=== PATIENT | male | born 1960 | race Caucasian/White ===

== ENCOUNTER → 2017-09-12 | Outpatient (CLI) | payer OTHER ==
[~2017-09-12] MED LIST: IOPAMIDOL (ISOVUE-300) 100 ML BTL ONE
== END ==
LOC: CIMAGING 08:13
PROVIDERS: ATTEND Family Medicine
DX: N28.89 Other specified disorders of kidney and ureter (principal); N28.1 Cyst of kidney, acquired
CPT/HCPCS: 74178-PO; Q9967

== ENCOUNTER → 2017-09-12 | Outpatient (CLI) | payer OTHER | LOC: FIMAGING 14:32 | PROVIDERS: ATTEND Physician Assistant Medical | DX: C64.9 Malignant neoplasm of unspecified kidney, except renal pelvis (principal); N28.1 Cyst of kidney, acquired; R31.0 Gross hematuria ==

== ENCOUNTER 2017-10-02 08:55 | Inpatient (IN) | payer OTHER ==
--- NOTE | 2017-10-01 14:38 | GHP ---
[f rep st] PREOP HISTORY AND PHYSICAL ADMISSION DIAGNOSIS: Left renal mass. HISTORY OF PRESENT ILLNESS: This is a 57-year-old gentleman who was referred for evaluation of left renal mass. He had gross hematuria with coke colored urine and clots noted. He had an evaluation with a CAT scan which showed simple cysts bilaterally with a left renal mass that was 6.8 cm long by 5.5 cm transverse, 4.88 cm AP and question of renal vein invasion. PAST HISTORY: He has had hematuria, diabetes, hypertension, and reflux. PAST SURGICAL HISTORY: A tonsillectomy. MEDICATIONS: Atenolol, Aleve, and Lialda. ALLERGIES: None. FAMILY HISTORY: Positive for heart disease and lymphoma. SOCIAL HISTORY: Moderate alcohol consumption. Nonsmoker. He is with children. REVIEW OF SYSTEMS: Negative cardiac, respiratory, GI and endocrine as noted above. PHYSICAL EXAMINATION: VITAL SIGNS: Stable. CHEST: Clear. HEART: Regular rate and rhythm. ABDOMEN: Normal. No organomegaly, rebound or guarding. Lower extremities are normal. LABORATORY DATA: He has had a creatinine on 09/05/2017 that was 1.1, hemoglobin A1c that was 7.8, and a serum glucose was 203. ASSESSMENT AND PLAN: At the present time, he is admitted for left robotic assisted radical nephrectomy and possible ureterectomy if it turns out that this is a transitional cell carcinoma of the kidney. It appears to be most likely renal cell carcinoma. /[id number]/MODL MTDD
--- NOTE | 2017-10-02 07:01 | PDHPUP ---
History & Physical Update H&P update statement: This history and physical update is based on an assessment of the patient which was completed after admission or registration (within 24 hours), but prior to the surgery/procedure. H&P update: H&P reviewed & patient examined, no change in patient's condition since H&P completed
[~2017-10-02 08:55] MED LIST changes: -IOPAMIDOL (ISOVUE-300) 100 ML BTL ONE; +ceFAZolin 2 GM/SWFI 2 GM/20 ML SYR IVP ONE
[2017-10-02] MEDS ORDERED: LR 1,000 ML IV ONE (11:14)
[2017-10-02] MEDS ORDERED: fentaNYL 100 MCG/2 ML INJ ONE ×3 (11:33→15:42)
[2017-10-02] MEDS ORDERED: PROPOFOL 200 MG/20 ML VIAL ONE ×2 (11:33→12:48)
[2017-10-02] MEDS ORDERED: LIDOCAINE 2% 100 MG/5 ML SYR ONE (11:34)
[2017-10-02] MEDS ORDERED: BUPIVACAINE 0.5% 30 ML SDV ONE (11:37)
[2017-10-02] MEDS ORDERED: ceFAZolin 2 GM/SWFI 20 ML SYR IVP ONE (11:38)
[2017-10-02] MEDS ORDERED: MIDAZOLAM 2 MG/2 ML VIAL IVP ONE (11:48)
--- NOTE | 2017-10-02 11:48 | PDANEPAE ---
ANE History of Present Illness here for nephrectomy ANE Past Medical History - Cardiovascular History Hx Hypertension: Yes Hx Arrhythmias: No Hx Chest Pain: No Hx Coronary Artery / Peripheral Vascular Disease: No Hx CHF / Valvular Disease: No Hx Palpitations: No Cardiovascular History Comment: benign PVC's - Pulmonary History Hx COPD: No Hx Asthma/Reactive Airway Disease: No Hx Recent Upper Respiratory Infection: No Hx Oxygen in Use at Home: No Hx Sleep Apnea: No Sleep Apnea Screening Result - Last Documented: Positive Pulmonary History Comment: sinus infections from allergies - Neurologic History Hx Cerebrovascular Accident: No Hx Seizures: No Hx Dementia: No - Endocrine History Hx Diabetes: Yes Endocrine History Comment: type 11. not taking any meds - Renal History Hx Renal Disorders: Yes Renal History Comment: Renal mass - Liver History Hx Hepatic Disorders: No - Neurological & Psychiatric Hx Hx Neurological and Psychiatric Disorders: No - Cancer History Hx Cancer: No - Congenital Disorder History Hx Congenital Disorders: No - GI History Hx Gastrointestinal Disorders: Yes Gastrointestinal History Comment: cholitis - Other Health History Other Health History: none - Chronic Pain History Chronic Pain: Yes (sinus pain) - Surgical History Prior Surgeries: none ANE Review of Systems Review of Systems: - Exercise capacity METS (RN): 5 METS ANE Patient History - Allergies Allergies/Adverse Reactions: omeprazole [From Prilosec] Allergy (Verified 09/18/17 13:38) Vomiting - Home Medications Home Medications: Acetaminophen [Tylenol 325mg (*)] 325 - 650 mg PO Q6HRS PRN 09/18/17 [Last Taken Unknown] Atenolol [Tenormin 25 mg (*)] 25 mg PO HS 09/18/17 [Last Taken Unknown] Herbals/Supplements -Info Only 1 ea PO DAILY 09/18/17 [Last Taken Unknown] Lisinopril [Zestril 5 mg (*)] 5 mg PO DAILY 09/18/17 [Last Taken Unknown] Loratadine [Claritin] 10 mg PO DAILY 09/18/17 [Last Taken Unknown] Mesalamine [Lialda] 2.4 gm PO DAILY 09/18/17 [Last Taken Unknown] Rio-3 Fatty Acids [Fish Oil 1000 mg (*)] 1,000 mg PO DAILY 09/18/17 [Last Taken Unknown] Simvastatin [Zocor] 20 mg PO HS 09/18/17 [Last Taken Unknown] - NPO status NPO Since - Liquids (Date): 10/02/17 NPO Since - Liquids (Time): 09:45 NPO Since - Solids (Date): 10/02/17 NPO Since - Solids (Time): 08:30 - Anes Hx Anes Hx: no prior problems - Smoking Hx Smoking Status: Never smoked - Alcohol Use Alcohol Use: Rarely - Family Anes Hx Family Anes Hx: none Family Hx Anesthesia Complications: none ANE Labs/Vital Signs - Vital Signs Blood Pressure: 150/96 Heart Rate: 73 Respiratory Rate: 16 O2 Sat (%): 98 Height: 177.8 cm Weight: 90.718 kg ANE Physical Exam - Airway Neck exam: FROM Mallampati Score: Class 2 Mouth exam: normal dental/mouth exam Mouth image: 1 - missing 2 - missing - Pulmonary Pulmonary: no respiratory distress, clear to auscultation - Cardiovascular Cardiovascular: regular rate and rhythym, no murmur, rub, or gallop - ASA Status ASA Status: II ANE Anesthesia Plan Anesthesia Plan: general endotracheal anesthesia
[2017-10-02] MEDS ORDERED: ROCURONIUM 100 MG/10 ML VIAL ONE (12:48)
[2017-10-02] MEDS ORDERED: ROCURONIUM 50 MG/5 ML VIAL ONE (12:48)
[2017-10-02] MEDS: SURGIFLO MATRIX KIT WITH THROMBIN 8ml TP ONE ×2 (13:10→15:18)
[2017-10-02] MEDS ORDERED: ONDANSETRON 4 MG/2 ML VIAL ONE (13:24)
[2017-10-02] MEDS ORDERED: DEXAMETHASONE 4 MG/ML VIAL ONE (13:24)
[2017-10-02] MEDS ORDERED: HYDROmorphONE/DILAUDID 6 MG/30 ML PCA IV PRN (14:45)
[2017-10-02] MEDS ORDERED: ZOLPIDEM TARTRATE 5 MG TAB PO PRN (14:45)
[2017-10-02] MEDS ORDERED: ONDANSETRON DISINTEGRATING 4 MG TAB PO PRN (14:45)
[2017-10-02] MEDS ORDERED: NALOXONE HCL 0.4 MG/ML INJ IVP PRN ×2 (14:45→15:03)
--- NOTE | 2017-10-02 14:51 | POSTOPPROG ---
Post Op Note Date of Operation: 10/02/17 Surgeon: Sea Ravi Picker Tender Helper: Veronica Anesthesia: GET(General Endotracheal) Pre-op Diagnosis: left renal mass Procedure: left RA radical nephrectomy Inf/Abcess present in the surg proc area at time of surgery?: No EBL: 50-100 Specimen(s): sent and grossly RCC, no frozen done, dictated op note
--- NOTE | 2017-10-02 14:54 | GOP ---
[f rep st] OPERATIVE REPORT DATE OF OPERATION: 10/02/2017 SURGEON: Sea Ravi MD GEOSPATIAL EXTRACTOR ANALYSIS: Kristine Martin CFA PREOPERATIVE DIAGNOSIS: Left renal mass. POSTOPERATIVE DIAGNOSIS: Left renal mass. PROCEDURE PERFORMED: Robotic assisted radical nephrectomy left and partial ureterectomy. FINDINGS: ESTIMATED BLOOD LOSS: Less than 100 mL. DESCRIPTION OF PROCEDURE: Pandaman underwent general anesthesia, was prepped and draped in normal s terile fashion in the appropriate position. He had a Veress needle placed to insufflate the abdomen t o 15 mmHg and then a camera was placed under direct vision into the abdomen and then two 8 mm robot p orts and a 15 mm assistant professor of dietetics port were placed and then mobilized the colon, identified the ureter and d issected that up to where it entered the renal hilar area. The renal vein and artery could be easily identified and a 65 mm vascular staple was used to go across the vessels and then, at that point, tr ansected the ureter and mobilized the kidney. He had this large renal cyst on the left side that act ually had to be drained because it was difficult to manipulate this large mass. After that was drain ed, I was able to cross the adrenal and left part of that with the stapler then dissected out the upp er pole of the kidney. Hemostasis was noted after decreasing the intraabdominal pressure to 5 mmHg. Specimen was placed in a bag and then, at that point, using a fascial closure device, we closed the l arge port sites and then a Garcia type incision was made in the left lower quadrant to extract the tu mor in its bag. It was sent for frozen section, which is pending at the time. If The frozen section reveals a malignant renal cell carcinoma and not a transitional cell, then the case will be completed . I informed the patient preoperatively, if it turns out that it is a transitional cell carcinoma of the renal pelvis, then I will need to remove the ureter. At the present time, it is a left radical n ephrectomy robotically assisted and partial ureterectomy. /[id number]/MODL
[2017-10-02] MEDS ORDERED: HYDROCODONE/APAP 5/325 TAB PO PRN (15:03)
[2017-10-02] MEDS ORDERED: OXYCODONE/APAP 5/325 TAB PO PRN (15:03)
[2017-10-02] MEDS ORDERED: ACETAMINOPHEN 500 MG TAB PO PRN (15:03)
[2017-10-02] MEDS ORDERED: HYDROmorphONE/DILAUDID 1 MG/ML INJ IVP PRN (15:03)
[2017-10-02] MEDS ORDERED: ONDANSETRON 4 MG/2 ML VIAL IVP PRN (15:03)
--- NOTE | 2017-10-02 15:04 | POSTANESTH ---
Post Anesthetic Evaluation Cardiovascular Status: Normal, Stable, Similar to Pre-Op Cond Respiratory Status: Normal, Stable, Similar to Pre-op Cond. Level of Consciousness/Mental Status: Can Participate in Eval, Alert and Oriented Pain Control: Adequate, Prn Tx Ordered Nausea/Vomiting Control: Adequate, Prn Tx Ordered Complications Possibly Related to Anesthesia: None Noted
[2017-10-02] MEDS: fentaNYL 100 MCG/2 ML INJ IVP PRN ×2 (15:45→16:02)
[2017-10-02] MEDS: NS W/ 20 KCl/L 1,000 ML IV SCH (16:46)
[2017-10-02 19:38] LABS: PLATELET COUNT 211 10^3/uL (150-400)
[2017-10-02] MEDS: ACETAMINOPHEN 325 MG TAB PO PRN (20:48)
[2017-10-02] MEDS ORDERED: ATORVASTATIN CALCIUM 10 MG TAB PO SCH (23:00)
[2017-10-02] MEDS: ATENOLOL 25 MG TAB PO SCH (23:37)
[2017-10-03] MEDS: ACETAMINOPHEN 325 MG TAB PO PRN ×2 (05:35→12:13)
[2017-10-03] MEDS: NS W/ 20 KCl/L 1,000 ML IV SCH ×3 (05:36→22:35)
[2017-10-03] MEDS ORDERED: CETIRIZINE 10 MG TAB PO SCH (09:00)
[2017-10-03] MEDS ORDERED: LISINOPRIL 5 MG TAB PO SCH (09:00)
--- NOTE | 2017-10-03 12:43 | ASMTCMCOM ---
CM Note CM Note Notes: Pt admitted for L nephrectomy. Pt's DC needs are unclelar at this time. CM will continue to follow. Date Signed: 10/03/2017 12:42 PM Electronically Signed By:Sarah Eisenberg LCSW
[2017-10-03] MEDS: OXYCODONE/APAP 5/325 TAB PO PRN ×4 (16:48→22:37)
[2017-10-03] MEDS: ONDANSETRON 4 MG/2 ML VIAL IVP PRN ×2 (16:48→22:02)
--- NOTE | 2017-10-03 18:27 | SOAPPROG ---
SOAP Progress Note Assessment/Plan: Assessment: Renal cell cancer Acute POD 1, doing well Plan: continue post op care 10/03/17 18:26 Subjective: ambulating , no flatus Objective: Vital Signs Temp Pulse Resp BP Pulse Ox 36.8 C 68 15 125/68 H 92 10/03/17 16:07 10/03/17 16:07 10/03/17 16:07 10/03/17 16:07 10/03/17 16:07 Laboratory Results 10/03/17 15:06 10/03/17 15:06 10/02/17 10/03/17 10/04/17 05:59 05:59 05:59 Intake Total 1590 2978 Output Total 2050 1750 Balance -460 1228 Physical Exam - Physical Exam General Appearance: alert Neck: supple Respiratory: No respiratory distress Cardiac/Chest: regular rate, rhythm Abdomen: soft Extremities: No calf tenderness Neuro/Psych: alert, oriented x 3 ICD10 Worksheet Patient Problems: Problems Problem Status Onset Renal cell cancer Acute - ICD10 Problem Qualifiers (1) Renal cell cancer
[2017-10-03] MEDS: ATENOLOL 25 MG TAB PO SCH (20:00)
[2017-10-03] MEDS ORDERED: SIMVASTATIN PO SCH (21:00)
[2017-10-04] MEDS: OXYCODONE/APAP 5/325 TAB PO PRN ×4 (05:57→12:40)
[2017-10-04] MEDS: ONDANSETRON 4 MG/2 ML VIAL IVP PRN ×2 (05:57→10:53)
[2017-10-04] MEDS: NS W/ 20 KCl/L 1,000 ML IV SCH (08:38)
[2017-10-04] MEDS ORDERED: CETIRIZINE 10 MG TAB PO SCH (09:00)
[2017-10-04] MEDS ORDERED: OMEGA-3 FATTY ACIDS 1,000 MG CAP PO SCH (09:00)
[2017-10-04] MEDS ORDERED: ATORVASTATIN CALCIUM 10 MG TAB PO SCH (09:00)
[2017-10-04] MEDS ORDERED: CLARITIN PO SCH (09:00)
[2017-10-04] MEDS ORDERED: FISH OIL PO SCH (09:00)
[2017-10-04] MEDS ORDERED: MESALAMINE PO SCH (09:00)
--- NOTE | 2017-10-04 09:58 | SOAPPROG ---
SOAP Progress Note Assessment/Plan: Assessment: Renal cell cancer Acute POD 2, doing well Plan: consider DC 10/04/17 09:57 Subjective: ok, flatus and walking Objective: Vital Signs Temp Pulse Resp BP Pulse Ox 36.6 C 64 14 140/75 H 97 10/04/17 07:22 10/04/17 07:22 10/04/17 07:22 10/04/17 07:22 10/04/17 07:22 Laboratory Results 10/04/17 04:05 10/04/17 04:05 10/03/17 10/04/17 10/05/17 05:59 05:59 05:59 Intake Total 1590 4434 Output Total 2050 3050 Balance -460 1384 Physical Exam - Physical Exam General Appearance: alert Respiratory: No respiratory distress Cardiac/Chest: regular rate, rhythm Abdomen: soft Back: No CVA tenderness Neuro/Psych: oriented x 3 ICD10 Worksheet Patient Problems: Problems Problem Status Onset Renal cell cancer Acute - ICD10 Problem Qualifiers (1) Renal cell cancer
[2017-10-04 13:23] VITALS: BP 157/82; PULSE 78; RESP 15; TEMP 97.7; O2SAT 94
== END 2017-10-04 16:26 | disposition home or self-care (01) | DRG 658 ==
LOC: F3E 11:23 → F1N 16:29
PROVIDERS: ADMIT Specialist; ATTEND Specialist
PROC: 0TT14ZZ Resection of Left Kidney, Percutaneous Endoscopic Approach (ICD-10-PCS; principal; 2017-10-02 12:45)
PROC: 0TB74ZZ Excision of Left Ureter, Percutaneous Endoscopic Approach (ICD-10-PCS; principal; 2017-10-02 12:45)
PROC: 8E0W4CZ Robotic Assisted Procedure of Trunk Region, Percutaneous Endoscopic Approach (ICD-10-PCS; principal; 2017-10-02 12:45)
DX: C64.2 Malignant neoplasm of left kidney, except renal pelvis (principal); E11.9 Type 2 diabetes mellitus without complications; I10 Essential (primary) hypertension
CPT/HCPCS: J0690; J1100; J1170; J2001; J2250; J2405; J2704; J3010

== ENCOUNTER → 2018-04-01 | Outpatient (CLI) | payer OTHER | LOC: FIMAGING 09:16 → EDSTATUS 09:17 → FIMAGING 09:18 | PROVIDERS: ATTEND Physician Assistant Medical | DX: C64.9 Malignant neoplasm of unspecified kidney, except renal pelvis (principal); I10 Essential (primary) hypertension; E03.9 Hypothyroidism, unspecified ==

== ENCOUNTER → 2018-10-07 | Outpatient (CLI) | payer OTHER ==
[~2018-10-07] MED LIST changes: +IOPAMIDOL (ISOVUE-300) 100 ML BTL ONE; -ceFAZolin 2 GM/SWFI 2 GM/20 ML SYR IVP ONE
== END ==
LOC: CIMAGING 07:41
PROVIDERS: ATTEND Specialist
DX: C64.9 Malignant neoplasm of unspecified kidney, except renal pelvis (principal); Z90.5 Acquired absence of kidney
CPT/HCPCS: 74160-PO; 82565-PO; Q9967